=== PATIENT | female | born 1950 | race Caucasian/White ===

== ENCOUNTER 2023-12-04 10:03 | Outpatient (CLI) | payer MEDICARE, BC | END 2023-12-04 10:04 | disposition home or self-care (01) | LOC: SCSMRI 10:03 | PROVIDERS: ATTEND Pain Medicine Pain Medicine | DX: M47.22 Other spondylosis with radiculopathy, cervical region (principal); M48.062 Spinal stenosis, lumbar region with neurogenic claudication; M48.07 Spinal stenosis, lumbosacral region; M50.23 Other cervical disc displacement, cervicothoracic region; M48.03 Spinal stenosis, cervicothoracic region | CPT/HCPCS: 72141; 72148 ==